=== PATIENT | female | born 1950 | race Caucasian/White ===

== ENCOUNTER 2017-03-05 23:58 | Inpatient (IN) | payer MEDICARE, OTHER ==
[~2017-03-05 23:58] MED LIST: ADVAIR 10028 BLISTER INH; AMBIEN CR12.5 MG/BO; AMBIEN CR12.5 MG/BO PO; AMBIEN10 MG PO; AMITRIPTYLINE H10 MG; ARTIFICIAL TEAR15 M9 OP; ASMANEX INH; ATENOLOL50 MG; ATIVAN1 M1 PO; ATIVAN1 MG; ATIVAN1 MG PO; B-121000 MCG SC; BENTYL20 MG; BENTYL20 MG PO; CIPRO500 MG; COMBIVENT1 PUFF INH; CULTURELLE1 CA1 PO; D3-5050000 UNIT; DIFICID200 MG PO; DUONEB; EFFER-K 20 MEQ20 MEQ PO; ELAVIL10 MG; ELAVIL10 MG PO; FIORICET TABLET1 TAB; FLAGYL500 MG; FLAGYL500 MG PO; FLEXERIL5 MG PO; GABAPENTIN PO; GABAPENTIN250 MG/51 PO; HEADACHE MEDICINE; HYDROCODONE/APA1 TAB; IMODIUM2 MG; IMODIUM2 MG PO; IPRAT-ALBUT 0.5-3 ML INH; K-DUR20 MEQ PO; LASIX20 MG PO; LASIX80 M1 PO; LEXAPRO10 MG; LIDODERM30 EA TP; LOMOTIL TABLET1 TAB; LOMOTIL1 TAB PO; LUBRIFRESH PM3.5 G1 RIGHT EYE; MACROBID 100 M100 M1 PO; MAXALT MLT10 MG/TAB; MAXALT10 MG PO; METOPROLOL SUCCINATE PO; METOPROLOL TART50 MG PO; MOBIC15 MG; MORPHINE SULFAT PO; MS CONTIN30 M1 PO; MS CONTIN30 MG; MS CONTIN30 MG PO; MS CONTIN60 M1 PO; MUCINEX PO; MULTIVITAMINS1 EAC6 PO; NEURONTIN300 MG; NORCO 10/325 TA1 TAB; NORCO 10/3251 TAB PO; NORCO 5/325 TAB1 TAB PO; NORCO 7.5-3251 EACH PO; OCTREOTIDE; OMNICEF300 MG PO; OPIUM; OPIUM 10 MG/ML; ORAMORPH SR30 M1 PO; ORAMORPH SR30 MG PO; ORAMORPH SR60 MG PO; PHENERGAN25 MG; PHENERGAN25 MG PO; PLAVIX75 M1 PO; POTASSIUM75 MG; PREDNISONE20 M1 PO; PREDNISONE20 MG PO; PREVACID SOLUTAB; PRISTIQ ER100 MG PO; PRISTIQ50 MG; PRISTIQ50 MG PO; PROAIR HFA8.5 GM IH; PROAIR HFA8.5 GM INH; PROBIOTIC1 EAC6 PO; PROTONIX40 M2 PO; PROTONIX40 MG; PROTONIX40 MG PO; RELPAX40 MG; REMERON15 MG; REQUIP1 M1 PO; RESTORIL30 M1 PO; RIZATRIPTAN SL; SANDOSTATI100 MCG/1 SC; SANDOSTATIN30 MG/KIT; SLOW MAG PO; SOMA350 MG; SOMA350 MG PO; SYMBICORT 80-41 PUFF INH; TOPAMAX25 MG; TOPAMAX50 MG; TOPROL PO; TOPROL-XL25 MG/TA5 PO; TRICOR145 MG; TYLENOL325 M1 PO; TYLENOL325 M2 PO; TYLENOL325 MG PO; VANCOCIN125 MG PO; VIBRA-TABS100 MG; VITAMIN B-1000 MCG/ IJ; VITAMIN B1250 MCG; VITAMIN C; VITAMIN D; VITAMIN D250000 UNI1 PO; VITAMIN D50000 UNIT; VITAMIN D50000 UNIT PO; WELCHOL625 M1 PO; WELCHOL625 MG PO; WELLBUTRIN SR150 MG; XIFAXAN200 MG; XIFAXAN200 MG PO; ZOFRAN ODT4 MG/UDTAB PO; ZOFRAN ODT8 MG PO; ZOFRAN4 MG PO; ZOFRAN8 MG PO; [UNRECOGNIZED DRUG - OTHER]; [UNRECOGNIZED DRUG - OTHER] OP; [UNRECOGNIZED DRUG - OTHER] PO
[2017-03-06] MEDS ORDERED: CLOPIDOGREL75 M1 PO (00:35)
[2017-03-06] MEDS ORDERED: PROZAC20 M3 PO (00:37)
[2017-03-06] MEDS ORDERED: VITAMIN B-12250 MC2 PO (00:38)
[2017-03-06] MEDS ORDERED: ELIQUIS5 M1 PO (00:45)
[2017-03-06] MEDS ORDERED: ATIVAN0.5 M1 PO ×2 (00:45)
[2017-03-06] MEDS ORDERED: PROMETHAZINE HCL PO (00:47)
[2017-03-06] MEDS ORDERED: MUPIROCIN22 G2 TP (00:49)
[2017-03-06] MEDS ORDERED: LIDODERM1 EACH TP (00:55)
[2017-03-06] MEDS ORDERED: MECLIZINE HCL25 M3 PO (00:56)
[2017-03-06 02:06] LABS: BASO % 0.3 % (0-2); EOS % 0.9 % (0-7); EOSINOPHIL ABSOLUTE COUNT 0.1 tho/cmm (0.0-0.7); HCT-HEMATOCRIT 30.7 % (34.0-49.0); IMMATURE GRANULOCYTES ABSOLUTE 0.01 tho/cmm (0-0.03); IMMATURE GRANULOCYTES PERCENT 0.1 % (0-0.3); LYMPH % 28.7 % (20-45); LYMPH ABSOLUTE COUNT 1.9 tho/cmm (0.8-4.5); MCHC MEAN CORPUSCULAR HGB CONC 32.6 % (32.0-36.0); MCV (MEAN CELL VOLUME) 82.7 fl (82.0-96.0); MEAN PLATELET VOLUME 9.1 cmc (9.4-12.4); MONO % 8.1 % (0-12); MONOCYTE ABSOLUTE COUNT 0.5 tho/cmm (0.0-1.2); NEUTROPHIL ABSOLUTE COUNT 4.1 tho/cmm (1.6-8.0); NEUTROPHIL-AUTOMATED 4.1 tho/cmm (1.6-8.0); NEUTROPHILS % 61.9 % (40-80); PLATELET COUNT 265 tho/cmm (150-450); RED BLOOD COUNT 3.71 mil/cmm (4.00-5.20); RED CELL DISTRIBUTION WIDTH 14.2 % (12.4-16.4); WHITE BLOOD COUNT 6.7 tho/cmm (4.0-10.0)
[2017-03-06 02:13] LABS: URINE BILIRUBIN NEGATIVE (NEG); URINE BLOOD SMALL (NEG); URINE GLUCOSE (UA) NEGATIVE (NEG); URINE KETONE NEGATIVE (NEG); URINE LEUKOCYTE ESTERASE POSITIVE (NEG); URINE NITRITE NEGATIVE (NEG); URINE PROTEIN NEGATIVE (NEG)
[2017-03-06 02:14] LABS: URINE APPEARANCE CLEAR; URINE COLOR PALE YELLOW
[2017-03-06 02:20] LABS: URINE EPITHELIAL CELLS 0-2 /[HPF] (0-10); URINE RBC 0-1 /[HPF] (0-5); URINE WBC 0-2 /[HPF] (0-5)
[2017-03-06 02:44] LABS: ALB/GLOB RATIO 0.8 (0.8-2.0); ALBUMIN 3.2 g/dl (3.5-5.0); ALKALINE PHOSPHATASE 94 U/L (33-138); ALT/SGPT 18 U/L (12-78); ANION GAP 9 mmol/L (0-20); AST/SGOT 22 U/L (10-40); BILIRUBIN,TOTAL 0.4 mg/dl (0-1.5); BLOOD UREA NITROGEN 8 mg/dl (6-24); CALCIUM 9.1 mg/dl (8.5-10.5); CARBON DIOXIDE-VENOUS 29 mmol/L (22-32); CHLORIDE 106 mmol/l (96-110); CREATININE 0.83 mg/dl (0.50-1.10); GLUCOSE 105 mg/dL (70-110); LIPASE 88 U/L (73-393); POTASSIUM 4.2 mmol/L (3.7-5.1); SODIUM 140 mmol/L (135-145); eGFR VALUE FOR BLACK 85 mL/Min
[2017-03-07 06:15] LABS: BASO % 0.2 % (0-2); EOS % 2.1 % (0-7); EOSINOPHIL ABSOLUTE COUNT 0.1 tho/cmm (0.0-0.7); HCT-HEMATOCRIT 29.3 % (34.0-49.0); HGB-HEMOGLOBIN 9.4 gm/dl (12.0-15.5); LYMPH % 38.7 % (20-45); LYMPH ABSOLUTE COUNT 2.2 tho/cmm (0.8-4.5); MCH (MEAN CORPUSCULAR HGB) 26.3 pg (28.0-32.0); MCHC MEAN CORPUSCULAR HGB CONC 32.1 % (32.0-36.0); MCV (MEAN CELL VOLUME) 81.8 fl (82.0-96.0); MEAN PLATELET VOLUME 9.3 cmc (9.4-12.4); MONO % 13.5 % (0-12); MONOCYTE ABSOLUTE COUNT 0.8 tho/cmm (0.0-1.2); NEUTROPHIL ABSOLUTE COUNT 2.6 tho/cmm (1.6-8.0); NEUTROPHIL-AUTOMATED 2.6 tho/cmm (1.6-8.0); NEUTROPHILS % 45.5 % (40-80); PLATELET COUNT 261 tho/cmm (150-450); RED BLOOD COUNT 3.58 mil/cmm (4.00-5.20); RED CELL DISTRIBUTION WIDTH 14.3 % (12.4-16.4); WHITE BLOOD COUNT 5.6 tho/cmm (4.0-10.0)
[2017-03-07 06:27] LABS: ANION GAP 9 mmol/L (0-20); BLOOD UREA NITROGEN 10 mg/dl (6-24); CALCIUM 8.5 mg/dl (8.5-10.5); CARBON DIOXIDE-VENOUS 30 mmol/L (22-32); CHLORIDE 108 mmol/l (96-110); CREATININE 0.75 mg/dl (0.50-1.10); GLUCOSE 85 mg/dL (70-110); POTASSIUM 3.7 mmol/L (3.7-5.1); SODIUM 143 mmol/L (135-145); eGFR VALUE FOR BLACK >90 mL/Min
--- NOTE | 2017-03-07 21:24 | NUR ---
VN ROUNDING NOTE-PATIENT LAYING IN BED COMFORTABLY WITH NURSE AND STUDENT AT BEDSIDE. PATIENT STATES PAIN IS DOING OK AND SHE IS TOLERATING HER LIQUIDS. NURSE IS PLANNING TO ADVANCE HER TO LOW RESIDUE DIET IN THE MORNING AND PATIENT MENTIONED ABOUT GETTING TO POSSIBLE GO HOME TOMORROW. PATIENT HOWEVER IS REQUESTING MORPHINE TONIGHT FOR WHEN SHE GOES TO BED. PATIENT STATES SHE KNOWS WHEN SHE NEEDS TO COME TO THE HOSPITAL IT IS USUALLY SOMETHING SHE EATS THAT SHE SHOULD NOT HAVE. DID SOME EDUCATION ON TRYING TO REFRAIN FROM THOSE FOODS AND DOING SOME BOWEL REST TO MAYBE TRY AND PREVENT HAVING TO COME TO THE HOSPITAL TO TRY AND STAY COMPLIANT WITH HER BODY NEEDS.
--- NOTE | 2017-03-08 11:45 | NUR ---
VIRTUAL CARE NOTE: PT AWAKE, SITTING UP IN CHAIR FOR LUNCH. PT STATES SHE IS FEELING BETTER, TOLERATING DIET. ORDERS TO DC TO HOME. DC INSTRUCTIONS REVIEWED. PT DENIES QUESTIONS/CONCERNS, VERBALIZES UNDERSTANDING TO CALL FOR F/U APPT INSTRUCTED. NURSING NOTIFIED EDUCATION COMPLETE, PT NOTIFIED RIDE.
[2017-06-06] MEDS ORDERED: ROPINIROLE HCL1 M1 PO (16:10)
[2017-08-09] MEDS ORDERED: GABAPENTIN250 MG/51 PO (21:52)
[2017-08-10] MEDS ORDERED: MACROBID 100 M100 M1 PO (00:35)
[2017-08-10] MEDS ORDERED: PERCOCET 5-3251 EACH PO (00:37)
== END 2017-03-08 12:45 | DRG 390 ==
LOC: EDMED 23:58 → EMR2 03-06 06:13 → 5WD 03-06 07:07
PROVIDERS: Emergency Medicine; Registered Nurse; ADMIT Family Medicine
DX: K56.60 Unspecified intestinal obstruction (principal); I69.398 Other sequelae of cerebral infarction; I10 Essential (primary) hypertension; K59.00 Constipation, unspecified; G89.29 Other chronic pain; M19.90 Unspecified osteoarthritis, unspecified site; F32.9 Major depressive disorder, single episode, unspecified; K21.9 Gastro-esophageal reflux disease without esophagitis; G25.81 Restless legs syndrome; H54.41 Blindness, right eye, normal vision left eye; G43.909 Migraine, unspecified, not intractable, without status migrainosus; Z87.891 Personal history of nicotine dependence; Z88.6 Allergy status to analgesic agent; Z88.1 Allergy status to other antibiotic agents; Z88.0 Allergy status to penicillin; Z88.2 Allergy status to sulfonamides; Z88.8 Allergy status to other drugs, medicaments and biological substances; Z79.02 Long term (current) use of antithrombotics/antiplatelets; Z79.01 Long term (current) use of anticoagulants; Z79.891 Long term (current) use of opiate analgesic; Z79.899 Other long term (current) drug therapy
CPT/HCPCS: C9113; J2060; J2270; J2405; J3010; J7030; Q9967

== ENCOUNTER 2017-04-25 13:20 | Emergency (ER) | payer MEDICARE, OTHER ==
[~2017-04-25 13:20] MED LIST changes: +ATIVAN0.5 M1 PO; +CLOPIDOGREL75 M1 PO; +ELIQUIS5 M1 PO; +LIDODERM1 EACH TP; +MECLIZINE HCL25 M3 PO; +MUPIROCIN22 G2 TP; +PROMETHAZINE HCL PO; +PROZAC20 M3 PO; +VITAMIN B-12250 MC2 PO
[2017-04-25] MEDS ORDERED: DOC-Q-LACE100 M2 PO (14:20)
[2017-04-25] MEDS ORDERED: ACIDOPHILUS1 EAC3 PO (14:22)
[2017-04-25] MEDS ORDERED: POTASSIUM CHLO20 ME3 PO (14:23)
[2017-04-25] MEDS ORDERED: CLARITIN10 M6 PO (14:24)
[2017-04-25 14:30] LABS: BASO % 0.2 % (0-2); EOS % 2.1 % (0-7); EOSINOPHIL ABSOLUTE COUNT 0.1 tho/cmm (0.0-0.7); HCT-HEMATOCRIT 33.1 % (34.0-49.0); HGB-HEMOGLOBIN 10.3 gm/dl (12.0-15.5); LYMPH % 36.2 % (20-45); LYMPH ABSOLUTE COUNT 1.8 tho/cmm (0.8-4.5); MCH (MEAN CORPUSCULAR HGB) 26.4 pg (28.0-32.0); MCHC MEAN CORPUSCULAR HGB CONC 31.1 % (32.0-36.0); MCV (MEAN CELL VOLUME) 84.9 fl (82.0-96.0); MEAN PLATELET VOLUME 9.3 cmc (9.4-12.4); MONOCYTE ABSOLUTE COUNT 0.6 tho/cmm (0.0-1.2); NEUTROPHIL ABSOLUTE COUNT 2.4 tho/cmm (1.6-8.0); NEUTROPHIL-AUTOMATED 2.4 tho/cmm (1.6-8.0); NEUTROPHILS % 49.5 % (40-80); PLATELET COUNT 270 tho/cmm (150-450); RED CELL DISTRIBUTION WIDTH 15.4 % (12.4-16.4); WHITE BLOOD COUNT 4.8 tho/cmm (4.0-10.0)
[2017-04-25 14:39] LABS: URINE BILIRUBIN NEGATIVE (NEG); URINE BLOOD NEGATIVE (NEG); URINE GLUCOSE (UA) NEGATIVE (NEG); URINE KETONE NEGATIVE (NEG); URINE LEUKOCYTE ESTERASE POSITIVE (NEG); URINE NITRITE NEGATIVE (NEG); URINE PROTEIN NEGATIVE (NEG); URINE SPECIFIC GRAVITY 1.015 (1.003-1.030)
[2017-04-25 14:40] LABS: URINE APPEARANCE CLEAR; URINE COLOR YELLOW
[2017-04-25 14:42] LABS: ANION GAP 11 mmol/L (0-20); BLOOD UREA NITROGEN 12 mg/dl (6-24); CALCIUM 9.1 mg/dl (8.5-10.5); CARBON DIOXIDE-VENOUS 30 mmol/L (22-32); CHLORIDE 106 mmol/l (96-110); CREATININE 0.91 mg/dl (0.50-1.10); GLUCOSE 97 mg/dL (70-110); SODIUM 142 mmol/L (135-145); eGFR VALUE FOR BLACK 76 mL/Min
[2017-04-25 14:44] LABS: POTASSIUM 4.5 mmol/L (3.7-5.1)
[2017-04-25 14:46] LABS: URINE EPITHELIAL CELLS 0-2 /[HPF] (0-10); URINE RBC 0 /[HPF] (0-5); URINE WBC 0-2 /[HPF] (0-5)
[2017-04-25] MEDS ORDERED: CYANOCOBAL1000 MCG/3 SC (15:20)
[2017-04-25] MEDS ORDERED: FLONASE ALLERG9.9 ML (15:20)
[2017-06-06] MEDS ORDERED: ROPINIROLE HCL1 M1 PO (16:10)
[2017-08-09] MEDS ORDERED: GABAPENTIN250 MG/51 PO (21:52)
[2017-08-10] MEDS ORDERED: MACROBID 100 M100 M1 PO (00:35)
[2017-08-10] MEDS ORDERED: PERCOCET 5-3251 EACH PO (00:37)
== END 2017-04-25 17:05 ==
LOC: EDMED 13:20
PROVIDERS: Emergency Medicine
DX: D64.9 Anemia, unspecified (principal); R53.83 Other fatigue; Z86.73 Personal history of transient ischemic attack (TIA), and cerebral infarction without residual deficits; Z79.899 Other long term (current) drug therapy